=== PATIENT | female | born 1960 | race Caucasian/White ===

== ENCOUNTER 2018-02-26 14:46 | Emergency (ER) | payer BC ==
[2018-02-26] MEDS ORDERED: WELLBUTRIN150 M1 PO (15:01)
[2018-02-26] MEDS ORDERED: MELOXICAM7.5 MG PO (15:02)
[2018-02-26] MEDS ORDERED: ASPIRIN81 MG PO (15:02)
[2018-02-26] MEDS ORDERED: FLEXERIL PO (18:24)
[2018-02-26] MEDS ORDERED: LORTAB 1010 MG PO (18:24)
[2018-02-26 18:53] VITALS: BP 131/72
== END 2018-02-26 19:12 | disposition home or self-care (01) | DRG 552 ==
LOC: ED 14:46
DX: M54.41 Lumbago with sciatica, right side (principal)